=== PATIENT | male | born 1950 | race Caucasian/White ===

== ENCOUNTER 2021-08-13 02:52 | Observation (INO) | payer MEDICARE ==
--- NOTE | 2021-08-13 03:26 | ED ---
Chest Pain HPI - General Chief Complaint: Chest Pain Stated Complaint: Chest Pain Time Seen by Provider: 08/13/21 03:11 Source: patient Mode of arrival: wheelchair Limitations: physical limitation - History of Present Illness Initial Comments: This patient is a 70-year-old man woke this morning with sided chest pain. He is not able to characterize it well but states that it was moderate intensity, it seemed to resolve by the time he got here. He felt that it may have been related to eating some greasy ribs he had before going to bed. Patient states that also seem to radiate to his left shoulder. Onset/Timin -: hour(s) Onset: awoke with symptoms Pain Location: left chest Pain Radiation: LUE Severity: moderate Quality: other Consistency: now resolved Improves With: nothing Worsens With: nothing Treatments Prior to Arrival: none - Related Data Home Medications Medication Instructions Recorded Confirmed Acetaminophen with Codeine 1 tab PO Q6H PRN 08/13/21 08/13/21 [Tylenol w/Codeine #4 Tablet] Alendronate Sodium [Fosamax] 70 mg PO TH 08/13/21 08/13/21 Ascorbic Acid [Vitamin C] 500 mg PO DAILY 08/13/21 08/13/21 Cholecalciferol (Vitamin D3) 75 mcg PO DAILY 08/13/21 08/13/21 [Vitamin D3 (3000 Iu)] Magnesium 250 mg PO DAILY 08/13/21 08/13/21 Metoprolol Succinate (ER) [Toprol 50 mg PO HS 08/13/21 08/13/21 XL] Montelukast [Singulair] 10 mg PO HS 08/13/21 08/13/21 Pravastatin Sodium [Pravachol] 40 mg PO HS 08/13/21 08/13/21 Tamsulosin HCl [Flomax] 0.4 mg PO HS 08/13/21 08/13/21 Previous Rx's Medication Instructions Recorded Aspirin 81 mg PO DAILY tab 08/13/21 Omeprazole 20 mg PO BID #60 cap 08/13/21 Allergies Allergy/AdvReac Type Severity Reaction Status Date / Time chlorzoxazone [From Paraflex] Allergy Rash/Hives Verified 08/13/21 03:05 Penicillins Allergy Rash/Hives Verified 08/13/21 03:05 Review of Systems ROS Statement: Those systems with pertinent positive or pertinent negative responses have been documented in the HPI. ROS Other: All systems not noted in ROS Statement are negative. Constitutional: Denies: fever, chills Respiratory: Denies: cough, dyspnea Cardiovascular: Reports: chest pain. Denies: palpitations, orthopnea, edema, syncope Gastrointestinal: Reports: diarrhea (For past 10 days). Denies: abdominal pain, nausea, vomiting, constipation Genitourinary: Denies: dysuria, hematuria Musculoskeletal: Denies: back pain Skin: Denies: rash Neurological: Denies: headache, weakness, numbness EKG Findings - EKG Comments: EKG Findings:: Possible old lateral infarct. - EKG Results: EKG: interpreted by ERMD, sinus rhythm (With PVC, rate 74 bpm), normal axis, normal ST/T Past Medical History Past Medical History: Coronary Artery Disease (CAD), Myocardial Infarction ([place]) Past Surgical History: Appendectomy, Heart Catheterization With Stent, Orthopedic Surgery Additional Past Surgical History / Comment(s): lt arm, knee Past Psychological History: No Psychological Hx Reported Smoking Status: Never smoker Past Alcohol Use History: None Reported Past Drug Use History: None Reported General Exam Limitations: physical limitation General appearance: alert, in no apparent distress Head exam: Present: atraumatic, normocephalic Eye exam: Present: normal appearance. Absent: scleral icterus, conjunctival injection Neck exam: Present: normal inspection Respiratory exam: Present: normal lung sounds bilaterally. Absent: respiratory distress, wheezes, rales, rhonchi, stridor Cardiovascular Exam: Present: regular rate, normal rhythm, normal heart sounds. Absent: systolic murmur, diastolic murmur, rubs, gallop GI/Abdominal exam: Present: soft. Absent: distended, tenderness, guarding, rebound, rigid, mass Extremities exam: Present: normal inspection, normal capillary refill. Absent: pedal edema, calf tenderness Back exam: Present: normal inspection. Absent: CVA tenderness (R), CVA tenderness (L) Neurological exam: Present: alert Skin exam: Present: warm, dry, intact, normal color. Absent: rash Course Vital Signs 08/13/21 08/13/21 08/13/21 02:57 04:17 06:00 Temperature 98.1 F Pulse Rate 70 62 58 L Respiratory 20 18 18 Rate Blood Pressure 170/80 134/74 119/81 O2 Sat by Pulse 96 95 95 Oximetry Disposition Clinical Impression: Chest pain Disposition: ADMITTED IP TO THIS HOSP Condition: Good Is patient prescribed a controlled substance at d/c from ED?: No
[2021-08-13 03:49] LABS: Basophils # (A) 0.1 k/uL (0-0.2); Basophils % (A) 1 %; Eosinophils # (A) 0.3 k/uL (0-0.7); Eosinophils % (A) 3 %; HCT 44.5 % (39.0-53.0); HGB 15.1 gm/dL (13.0-17.5); Lymphocytes # (A) 3.9 k/uL (1.0-4.8); Lymphocytes % (A) 35 %; MCH 33.2 pg (25.0-35.0); MCV 97.9 fL (80.0-100.0); Mean Platelet Volume 6.8; Monocytes # (A) 0.6 k/uL (0-1.0); Monocytes % (A) 5 %; Neutrophils # (A) 6.1 k/uL (1.3-7.7); Neutrophils % (A) 55 %; Platelet Count 308 k/uL (150-450); RBC 4.55 m/uL (4.30-5.90); RDW 12.8 % (11.5-15.5); WBC 11.1 k/uL (3.8-10.6)
--- NOTE | 2021-08-13 03:55 | XR ---
EXAMINATION TYPE: XR chest 2V DATE OF EXAM: 08/13/2021 COMPARISON: NONE HISTORY: Chest pain TECHNIQUE: 2 views FINDINGS: Heart and mediastinum are normal. Lungs are clear. Diaphragm is normal. Bony thorax is inta ct. There are chest leads. IMPRESSION: Normal chest.
[2021-08-13 04:05] LABS: Albumin 4.1 g/dL (3.5-5.0); Total Bilirubin 0.5 mg/dL (0.2-1.3)
[2021-08-13 04:09] LABS: Potassium 4.3 mmol/L (3.5-5.1)
[2021-08-13 04:20] VITALS: RESP 18
[2021-08-13] MEDS ORDERED: NITROGLYCERIN SL TABS 0.4 MG TAB SUBLINGUAL PRN (06:07)
[2021-08-13] MEDS ORDERED: SODIUM CHLORIDE 0.9% 1,000 ML IV SCH (06:15)
[2021-08-13 08:12] VITALS: BP 162/81; PULSE 63; TEMP 98
[2021-08-13] MEDS ORDERED: ASPIRIN 81 MG PO SCH (09:00)
--- NOTE | 2021-08-13 10:05 | P.CRDCN ---
History of Present Illness History of present illness: HISTORY OF PRESENTING ILLNESS This is a pleasant 70-year-old male past medical history significant for coronary artery disease status post PCI to left circumflex in [place] and PCI LAD and left circumflex in 2018 at [facility], hypertension, dyslipidemia COPD, former cigarette smoker, diverticular disease of colon. He follows in the office with Dr. Benitez. We have been asked to see in consultation for chest pain. Patient is seen and examined at bedside, no acute distress. He states that yesterday at 2:30AM he woke up to the bathroom and had left-sided chest pain. He states he also had left-sided arm pain however he does have a rotator cuff tear in his left arm and is currently getting IV steroid injections. Pain was non-exertional. He describes the pain as a pressure/pain. He took 2 aspirins and felt his pain improve. He denies any associated palpitations, shortness of breath, nausea, diaphoresis, lightheadedness, dizziness, syncope. He denies lower extremity edema, symptoms of orthopnea or PND. He denies any specific aggravating factors. Patient states that over the last 10 days he has been having some GI symptoms feeling nausea, upper abdominal and epigastric pain and burning. He did state that yesterday he did have short ribs and afterwards had an episode of diarrhea and also acid reflux burning. He denies fevers or chills. Patient recently saw Dr. Benitez in the office in 05/19/2021 for a follow up after stress test. 04/16/2021 Patient recently underwent a exercise myocardial perfusion stress test, patient had above average exercise functional capacity and there was no evidence of stress-induced myocardial ischemia. Most recent echocardiogram 09/2013 revealed an EF of 55%. DIAGNOSTICS EKG reveals sinus rhythm, heart rate 74, PVC, no significant STT wave abnormalities. EKG in Dr Benitez office in March 2021 with similar findings, sinus bradycardia, heart rate 58. Last Cardiac Catheterization 04/20/2018- LAD 85% stenosis, Mid Lcx 90% stenosis, 1st diagonal, 2nd diagonal OM1 with no evidence of disease. Patient underwent successful PCI to the mid LAD and mid left circumflex. Telemetry tracings indicate sinus mechanism heart rate 5560s. Chest xray no acute cardiopulmonary process. Laboratory reviewed, WBC 11.1, hemoglobin 15.1, platelets 308, sodium 139, potassium 4.3, BUN 21, serum creatinine 1.0, magnesium 2.0, troponin negative 1, COVID-19 PCR negative. Patient's home cardiac medications include aspirin 81 mg daily, metoprolol succinate 50 mg nightly, when necessary nitroglycerin, pravastatin 20 mg daily REVIEW OF SYSTEMS At the time of my exam: CONSTITUTIONAL: Denies fever or chills. CARDIOVASCULAR: +chest pain Denies shortness of breath, orthopnea, PND or palpitations. RESPIRATORY: Denies cough. GASTROINTESTINAL: +epigastric abdominal pain, +diarrhea, +nausea MUSCULOSKELETAL: Denies myalgias. NEUROLOGIC: Denies numbness, tingling, headacbe or weakness. ENDOCRINE: Denies fatigue, weight change, polydipsia or polyurina. GENITOURINARY: Denies burning, hematuria or urgency with micturation. HEMATOLOGIC: Denies history of anemia or bleeding. PHYSICAL EXAMINATION Blood pressure 119/81, heart 58, afebrile, maintaining oxygen saturations on room air. CONSTITUTIONAL: No apparent distress. HEENT: Head is normocephalic. Pupils are equal, round. Sclerae anicteric. Mucous membranes of the mouth are moist. No JVD. No carotid bruit. CHEST EXAMINATION: Lungs are clear to auscultation. No chest wall tenderness is noted on palpation or with deep breathing. HEART EXAMINATION: Regular rate and rhythm. S1, S2 heard. No murmurs, gallops or rub. ABDOMEN: Soft, Tenderness with palpation to epigastric. Positive bowel sounds. EXTREMITIES: 2+ peripheral pulses, no lower extremity edema and no calf tenderness. SKIN: warm, dry NEUROLOGIC EXAMINATION: Patient is awake, alert and oriented x3. ASSESSMENT Chest pain, atypical, troponin negative x 1. EKG with no evidence of ischemia. Patient with recent negative stress test in March 2021. Coronary artery disease status post PCI to left circumflex in [place] and PCI LAD and mid left circumflex in 2018 at [facility] Hypertension Dyslipidemia COPD Former cigarette smoker History of diverticular disease of colon PLAN Trend troponin Obtain 2D echocardiogram and doppler study to assess cardiac structure and function. Continue patient's home aspirin, statin, and metoprolol succinate If echocardiogram with no acute findings and troponin negative x 3, no further cardiac workup at this time, and patient can be discharged from a cardiology perspective. 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 Nurse Practitioner note has been reviewed, I agree with a documented findings an d plan of care. Patient was seen and examined. Past Medical History Past Medical History: Coronary Artery Disease (CAD), Myocardial Infarction ([place]) Past Surgical History: Appendectomy, Heart Catheterization With Stent, Orthopedic Surgery Additional Past Surgical History / Comment(s): lt arm, knee Past Psychological History: No Psychological Hx Reported Smoking Status: Never smoker Past Alcohol Use History: None Reported Past Drug Use History: None Reported Medications and Allergies Home Medications Medication Instructions Recorded Confirmed Type Acetaminophen with Codeine 1 tab PO Q6H PRN 08/13/21 08/13/21 History [Tylenol w/Codeine #4 Tablet] Alendronate Sodium [Fosamax] 70 mg PO TH 08/13/21 08/13/21 History Ascorbic Acid [Vitamin C] 500 mg PO DAILY 08/13/21 08/13/21 History Cholecalciferol (Vitamin D3) 75 mcg PO DAILY 08/13/21 08/13/21 History [Vitamin D3 (3000 Iu)] Metoprolol Succinate (ER) [Toprol 50 mg PO HS 08/13/21 08/13/21 History Xl] Pravastatin Sodium [Pravachol] 40 mg PO HS 08/13/21 08/13/21 History RX: Magnesium 250 mg PO DAILY 08/13/21 08/13/21 History RX: Montelukast [Singulair] 10 mg PO HS 08/13/21 08/13/21 History RX: Omeprazole 20 mg PO DAILY 08/13/21 08/13/21 History Tamsulosin HCl [Flomax] 0.4 mg PO HS 08/13/21 08/13/21 History Allergies Allergy/AdvReac Type Severity Reaction Status Date / Time chlorzoxazone [From Paraflex] Allergy Rash/Hives Verified 08/13/21 03:05 Penicillins Allergy Rash/Hives Verified 08/13/21 03:05 Physical Exam Vitals: Vital Signs Temp Pulse Pulse Resp BP BP Pulse Ox 08/13/21 08:11 98.0 F 63 18 162/81 99 08/13/21 06:00 58 L 18 119/81 95 08/13/21 04:17 62 18 134/74 95 08/13/21 02:57 98.1 F 70 20 170/80 96 Intake and Output 08/12/21 08/13/21 08/13/21 22:59 06:59 14:59 Other: Weight 58.967 kg Results 08/13/21 03:27 08/13/21 03:27 Cardiac Enzymes 08/13/21 08/13/21 Range/Units 03:27 03:27 AST 32 (17-59) U/L Troponin I <0.012 (0.000-0.034) ng/mL CBC 08/13/21 Range/Units 03:27 WBC 11.1 H (3.8-10.6) k/uL RBC 4.55 (4.30-5.90) m/uL Hgb 15.1 (13.0-17.5) gm/dL Hct 44.5 (39.0-53.0) % Plt Count 308 (150-450) k/uL Comprehensive Metabolic Panel 08/13/21 Range/Units 03:27 Sodium 139 (137-145) mmol/L Potassium 4.3 (3.5-5.1) mmol/L Chloride 107 (98-107) mmol/L Carbon Dioxide 23 (22-30) mmol/L BUN 21 H (9-20) mg/dL Creatinine 1.08 (0.66-1.25) mg/dL Glucose 103 H (74-99) mg/dL Calcium 9.0 (8.4-10.2) mg/dL AST 32 (17-59) U/L ALT 20 (4-49) U/L Alkaline Phosphatase 75 (38-126) U/L Total Protein 7.0 (6.3-8.2) g/dL Albumin 4.1 (3.5-5.0) g/dL Current Medications Generic Name Dose Route Start Last Admin Trade Name Freq PRN Reason Stop Dose Admin Aspirin 81 mg 08/13/21 09:00 Aspirin 81 Mg PO DAILY CELESTINE Sodium Chloride 1,000 mls @ 20 mls/hr 08/13/21 06:15 08/13/21 07:52 Saline 0.9% IV 20 mls/hr .Q24H CELESTINE Administration Nitroglycerin 0.4 mg 08/13/21 06:07 Nitroglycerin Sl Tabs 0.4 Mg Tab SUBLINGUAL Q5M PRN Chest Pain Pravastatin Sodium 40 mg 08/13/21 21:00 Pravastatin Sodium 40 Mg Tab PO HS CELESTINE Intake and Output 08/12/21 08/13/21 08/13/21 22:59 06:59 14:59 Other: Weight 58.967 kg 08/13/21 03:27 08/13/21 03:27
[2021-08-13] MEDS ORDERED: Acetaminophen-Codeine 300-30mg TAB PO PRN (10:56)
[2021-08-13] MEDS ORDERED: PANTOPRAZOLE 40 MG TABLET PO SCH (11:00)
[2021-08-13] MEDS ORDERED: NON FORMULARY DRUG (Alendronate Sodium [Fosamax] 70 MG Tablet) PO SCH (11:00)
--- NOTE | 2021-08-13 11:43 | ECHOF ---
Referral Reason: MEASUREMENTS -------- HEIGHT: 162.6 cm WEIGHT: 59.0 kg BP: RVIDd: 2.3 cm (< 3.3) IVSd: 1.0 cm (0.6 - 1.1) LVIDd: 3.6 cm (3.9 - 5.3) LVPWd: 0.9 cm (0.6 - 1.1) IVSs: 1.4 cm LVIDs: 2.0 cm LVPWs: 1.5 cm LAESV Index (A-L): 14.68 ml/m Ao Diam: 3.1 cm (2.0 - 3.7) AV Cusp: 2.2 cm (1.5 - 2.6) LA Diam: 3.4 cm (2.7 - 3.8) MV EXCURSION: 15.488 mm (> 18.000) MV EF SLOPE: 74 mm/s (70 - 150) EPSS: 2.8 cm MV E Howard: 0.81 m/s MV DecT: 248 ms MV A Howard: 0.92 m/s MV E/A Ratio: 0.88 AR PHT: 1124 ms RAP: 5.00 mmHg RVSP: 10.33 mmHg FINDINGS -------- Sinus rhythm. This was a technically adequate study. The left ventricular size is normal. Left ventricular wall thickness is normal. Overall left vent ricular systolic function is normal with, an EF between 55 - 60 %. The diastolic filling pattern is normal for the age of the patient 11.35. The right ventricle is normal in size. Normal LA size by volume 22+/-6 ml/m2. The right atrial size is normal. The aortic valve was not well visualized. Trace to mild aortic regurgitation. The mitral valve is normal. Mild mitral regurgitation is present. The tricuspid valve appears structurally normal. Trace tricuspid regurgitation present. Right davina tricular systolic pressure is normal at < 35 mmHg. The pulmonic valve was not well visualized. There is no pulmonic regurgitation present. The aortic root size is normal. Normal inferior vena cava with normal inspiratory collapse consistent with estimated right atrial pre ssure of 5 mmHg. There is no pericardial effusion. CONCLUSIONS -------- 1. Left ventricular wall thickness is normal. 2. Overall left ventricular systolic function is normal with, an EF between 55 - 60 %. 3. Normal LA size by volume 22+/-6 ml/m2. 4. Trace to mild aortic regurgitation. 5. Mild mitral regurgitation is present. 6. Trace tricuspid regurgitation present. 7. There is no pericardial effusion. PROFESSIONAL SKATER: Rosa Dexter RDCS
[2021-08-13] MEDS ORDERED: CALCIUM CARBONATE LIQUID 500 MG/5 ML CUP PO ONE (12:00)
--- NOTE | 2021-08-13 16:53 | P.HPIM ---
History of Present Illness H&P Date: 08/13/21 Chief Complaint: Chest pain History of presenting complaint: This is a pleasant 70-year-old patient of Dr. Milena Mcnamara. Also follows with Dr. cardiology is Dr. Sin is sent today. Patient has known coronary artery disease with stent done about 3-4 years ago. Chronic stable medical conditions include hypertension, hyperlipidemia, GERD, ALLERGIES, BPH. Patient also has chronic pain from neck injury and spinal stenosis and also has got left shoulder rotator cuff which is down. Last night patient intubated rather late and had eaten drips. Went to bed straight after that. Around 2:30 the morning and went to get out of the bathroom he felt some chest discomfort. Is also pain in the neck and the arm. Gooddistinguish this from his orthopedic pain. No dizziness or lightheadedness no perspiration. Patient also for less than 5 minutes. Patient has not been feeling well for about a week. He is getting people to come and check on his home, monoxide levels. No other systemic symptoms. No fever no chills. Just felt a bit tired. Patient about 2 months ago did have a negative nuclear stress test. Review of systems: GEN.: Tired EYES: None HEENT: None NECK: None RESPIRATORY: None CARDIOVASCULAR: As above GASTROINTESTINAL: None GENITOURINARY: None MUSCULOSKELETAL: As above LYMPHATICS: None HEMATOLOGICAL: None PSYCHIATRY: None NEUROLOGICAL: None Past medical history to include: CAD with stent about 3-4 years ago, hypertension, hyperlipidemia, GERD, ALLERGIES, BPH, neck pain comes spinal stenosis, left shoulder rotator cuff injury Social history: Lives alone. 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 No smoking or alcohol Family history: Reviewed, noncontributory to presentation Physical examination: VITAL SIGNS: 98, 63, 18, 160/81, 99% room air GENERAL: BMI 22.3, reclining in bed, awake. EYES: Pupils equal. Conjunctiva normal. HEENT: External appearance of nose and ears normal, oral cavity grossly normal. NECK: JVD not raised; masses not palpable. HEART: First and second heart sounds are normal; no edema. LUNGS: Respiratory rate normal; clear to auscultation. ABDOMEN: Soft, nontender, liver spleen not palpable, no masses palpable. PSYCH: Alert and oriented x3; mood and affect normal. NEUROLOGICAL: Cranial nerves grossly intact; no facial asymmetry, power and sensation grossly intact. LYMPHATICS: No lymph nodes palpable in the axilla and neck INVESTIGATIONS, reviewed in the clinical context: WBC 11.1 hemoglobin 15.1 platelets 308 potassium 4.3 creatinine 1.08 Troponin I 2 negative Coronavirus [PCL]: Not detected EKG tracing personally reviewed by me-normal sinus rhythm, Q waves in lateral leads and inferior leads. PVC Chest x-ray film: Normal Assessment and plan: -Anterior chest wall pain, lasting for 5 minutes after patient having had a large meal in the evening. Could be GERD. Rule out cardiac cause. Negative troponins. Cardiology consulted -Coronary artery disease with stent for 3-4 years ago. Pravachol 40 mg, Toprol-XL 50 mg, aspirin 81 mg -Hyperlipidemia Pravachol 40 mg daily at bedtime -Essential hypertension Toprol-XL 50 mg daily at bedtime -GERD Increase omeprazole to 20 mg twice a day -BPH Flomax 0.4 mg daily at bedtime -Chronic neck pain from spinal stenosis -Chronic left shoulder rotator cuff injury For outpatient follow-up Home medications resumed. Telemetry. Cardiology was consulted. 2-D echocardiogram was ordered. Past Medical History Past Medical History: Coronary Artery Disease (CAD), Myocardial Infarction ([place]) Past Surgical History: Appendectomy, Heart Catheterization With Stent, Orthopedic Surgery Additional Past Surgical History / Comment(s): lt arm, knee Past Psychological History: No Psychological Hx Reported Smoking Status: Never smoker Past Alcohol Use History: None Reported Past Drug Use History: None Reported Medications and Allergies Home Medications Medication Instructions Recorded Confirmed Type Acetaminophen with Codeine 1 tab PO Q6H PRN 08/13/21 08/13/21 History [Tylenol w/Codeine #4 Tablet] Alendronate Sodium [Fosamax] 70 mg PO TH 08/13/21 08/13/21 History Ascorbic Acid [Vitamin C] 500 mg PO DAILY 08/13/21 08/13/21 History Aspirin 81 mg PO DAILY tab 08/13/21 Rx Cholecalciferol (Vitamin D3) 75 mcg PO DAILY 08/13/21 08/13/21 History [Vitamin D3 (3000 Iu)] Magnesium 250 mg PO DAILY 08/13/21 08/13/21 History Metoprolol Succinate (ER) [Toprol 50 mg PO HS 08/13/21 08/13/21 History XL] Montelukast [Singulair] 10 mg PO HS 08/13/21 08/13/21 History Omeprazole 20 mg PO BID #60 cap 08/13/21 Rx Pravastatin Sodium [Pravachol] 40 mg PO HS 08/13/21 08/13/21 History Tamsulosin HCl [Flomax] 0.4 mg PO HS 08/13/21 08/13/21 History Allergies Allergy/AdvReac Type Severity Reaction Status Date / Time chlorzoxazone [From Paraflex] Allergy Rash/Hives Verified 08/13/21 03:05 Penicillins Allergy Rash/Hives Verified 08/13/21 03:05 Physical Exam Vitals: Vital Signs Temp Pulse Pulse Resp BP BP Pulse Ox 08/13/21 08:11 98.0 F 63 18 162/81 99 08/13/21 06:00 58 L 18 119/81 95 08/13/21 04:17 62 18 134/74 95 08/13/21 02:57 98.1 F 70 20 170/80 96 Intake and Output 08/12/21 08/13/21 08/13/21 22:59 06:59 14:59 Other: Weight 58.967 kg Results CBC & Chem 7: 08/13/21 03:27 08/13/21 03:27 Labs: Abnormal Lab Results - Last 24 Hours (Table) 08/13/21 08/13/21 Range/Units 03:27 03:27 WBC 11.1 H (3.8-10.6) k/uL BUN 21 H (9-20) mg/dL Glucose 103 H (74-99) mg/dL
--- NOTE | 2021-08-13 16:55 | P.DS ---
Providers Date of admission: 08/13/21 06:08 Expected date of discharge: 08/13/21 Attending physician: Pierre Rios Consults: 08/13/21 06:08 Consult Physician Routine Consulting Provider: Billy Sue Consult Reason/Comments: chest pain Do you want consulting provider notified?: Yes Primary care physician: Milena Mcnamara [facility] Course: Chief Complaint: Chest pain History of presenting complaint: This is a pleasant 70-year-old patient of Dr. Milena Mcnamara. Also follows with . cardiology is Dr. Sin is sent today. Patient has known coronary artery disease with stent done about 3-4 years ago. Chronic stable medical conditions include hypertension, hyperlipidemia, GERD, ALLERGIES, BPH. Patient also has chronic pain from neck injury and spinal stenosis and also has got left shoulder rotator cuff which is down. Last night patient intubated rather late and had eaten drips. Went to bed straight after that. Around 2:30 the morning and went to get out of the bathroom he felt some chest discomfort. Is also pain in the neck and the arm. Gooddistinguish this from his orthopedic pain. No dizziness or lightheadedness no perspiration. Patient also for less than 5 minutes. Patient has not been feeling well for about a week. He is getting people to come and check on his home, monoxide levels. No other systemic symptoms. No fever no chills. Just felt a bit tired. Patient about 2 months ago did have a negative nuclear stress test. EKG was unremarkable. Troponin is negative. Patient seen by machine stitcher. Cleared for discharge. Patient to follow-up with his own machine stitcher. Dose of omeprazole increase. Could be GERD Consultation: Dr. Ty from cardiology Past medical history to include: CAD with stent about 3-4 years ago, hypertension, hyperlipidemia, GERD, ALLERGIES, BPH, neck pain comes spinal stenosis, left shoulder rotator cuff injury Social history: Lives alone. 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 No smoking or alcohol Family history: Reviewed, noncontributory to presentation Physical examination: VITAL SIGNS: 98, 63, 18, 160/81, 99% room air GENERAL: BMI 22.3, reclining in bed, awake. EYES: Pupils equal. Conjunctiva normal. HEENT: External appearance of nose and ears normal, oral cavity grossly normal. NECK: JVD not raised; masses not palpable. HEART: First and second heart sounds are normal; no edema. LUNGS: Respiratory rate normal; clear to auscultation. ABDOMEN: Soft, nontender, liver spleen not palpable, no masses palpable. PSYCH: Alert and oriented x3; mood and affect normal. NEUROLOGICAL: Cranial nerves grossly intact; no facial asymmetry, power and sensation grossly intact. LYMPHATICS: No lymph nodes palpable in the axilla and neck INVESTIGATIONS, reviewed in the clinical context: 2-D echocardiogram: EF 55-60%. No wall motion abnormality. WBC 11.1 hemoglobin 15.1 platelets 308 potassium 4.3 creatinine 1.08 Troponin I 2 negative Coronavirus [PCL]: Not detected EKG tracing personally reviewed by me-normal sinus rhythm, Q waves in lateral leads and inferior leads. PVC Chest x-ray film: Normal Assessment and plan: -Anterior chest wall pain, possibly from flareup of GERD -Coronary artery disease with stent for 3-4 years ago. Pravachol 40 mg, Toprol-XL 50 mg, aspirin 81 mg -Hyperlipidemia Pravachol 40 mg daily at bedtime -Essential hypertension Toprol-XL 50 mg daily at bedtime -GERD Increase omeprazole to 20 mg twice a day -BPH Flomax 0.4 mg daily at bedtime -Chronic neck pain from spinal stenosis -Chronic left shoulder rotator cuff injury For outpatient follow-up Disposition: Home Plan - Discharge Summary Discharge Rx Participant: No New Discharge Prescriptions: New Aspirin 81 mg PO DAILY tab Continue Pravastatin Sodium [Pravachol] 40 mg PO HS Acetaminophen with Codeine [Tylenol w/Codeine #4 Tablet] 1 tab PO Q6H PRN PRN Reason: Pain Alendronate Sodium [Fosamax] 70 mg PO TH Tamsulosin HCl [Flomax] 0.4 mg PO HS Metoprolol Succinate (ER) [Toprol XL] 50 mg PO HS Changed Omeprazole 20 mg PO BID #60 cap No Action Montelukast [Singulair] 10 mg PO HS Cholecalciferol (Vitamin D3) [Vitamin D3 (3000 Iu)] 75 mcg PO DAILY Ascorbic Acid [Vitamin C] 500 mg PO DAILY Magnesium 250 mg PO DAILY Discharge Medication List Acetaminophen with Codeine [Tylenol w/Codeine #4 Tablet] 1 tab PO Q6H PRN 08/13/21 [History] Alendronate Sodium [Fosamax] 70 mg PO TH 08/13/21 [History] Ascorbic Acid [Vitamin C] 500 mg PO DAILY 08/13/21 [History] Aspirin 81 mg PO DAILY tab 08/13/21 [Rx] Cholecalciferol (Vitamin D3) [Vitamin D3 (3000 Iu)] 75 mcg PO DAILY 08/13/21 [History] Magnesium 250 mg PO DAILY 08/13/21 [History] Metoprolol Succinate (ER) [Toprol XL] 50 mg PO HS 08/13/21 [History] Montelukast [Singulair] 10 mg PO HS 08/13/21 [History] Omeprazole 20 mg PO BID #60 cap 08/13/21 [Rx] Pravastatin Sodium [Pravachol] 40 mg PO HS 08/13/21 [History] Tamsulosin HCl [Flomax] 0.4 mg PO HS 08/13/21 [History] Follow up Appointment(s)/Referral(s): Milena Mcnamara MD [Primary Care Provider] - 1-2 days Cathy Benitez MD [REFERRING] - 10 Days Patient Instructions/Handouts: Chest Pain (DC) Discharge Disposition: HOME SELF-CARE
[2021-08-13] MEDS ORDERED: FAMOTIDINE 20 MG TAB PO SCH (21:00)
[2021-08-13] MEDS ORDERED: MONTELUKAST 10 MG TAB PO SCH (21:00)
[2021-08-13] MEDS ORDERED: METOPROLOL SUCCINATE (ER) 50 MG TAB.ER.24H PO SCH (21:00)
[2021-08-13] MEDS ORDERED: TAMSULOSIN 0.4 MG CAP.ER.24H PO SCH (21:00)
[2021-08-13] MEDS ORDERED: PRAVASTATIN SODIUM 40 MG TAB PO SCH (21:00)
[2021-08-14] MEDS ORDERED: ASPIRIN 325 MG TAB PO SCH (09:00)
[2021-08-14] MEDS ORDERED: MAGNESIUM OXIDE 400 MG TAB PO SCH (09:00)
[2021-08-14] MEDS ORDERED: ASCORBIC ACID 500 MG TAB PO SCH (09:00)
[2021-08-14] MEDS ORDERED: CHOLECALCIFEROL 25 MCG (1000 IU) TABLET PO SCH (09:00)
== END 2021-08-13 12:49 | disposition home or self-care (01) ==
LOC: EC 02:52 → 6NMEDSUR 06:08
PROVIDERS: ADMIT Hospitalist; ATTEND Hospitalist
DX: R07.89 Other chest pain (principal); I10 Essential (primary) hypertension; E78.5 Hyperlipidemia, unspecified; K21.9 Gastro-esophageal reflux disease without esophagitis; Z20.822 Contact with and (suspected) exposure to COVID-19; I25.10 Atherosclerotic heart disease of native coronary artery without angina pectoris; K57.30 Diverticulosis of large intestine without perforation or abscess without bleeding; M75.102 Unspecified rotator cuff tear or rupture of left shoulder, not specified as traumatic; M48.00 Spinal stenosis, site unspecified; N40.0 Benign prostatic hyperplasia without lower urinary tract symptoms; Z79.83 Long term (current) use of bisphosphonates; Z79.899 Other long term (current) drug therapy; Z79.82 Long term (current) use of aspirin; Z88.0 Allergy status to penicillin; Z88.8 Allergy status to other drugs, medicaments and biological substances; I25.2 Old myocardial infarction; Z90.49 Acquired absence of other specified parts of digestive tract; J44.9 Chronic obstructive pulmonary disease, unspecified; I49.3 Ventricular premature depolarization; Z87.891 Personal history of nicotine dependence; Z95.5 Presence of coronary angioplasty implant and graft
CPT/HCPCS: 99285; 36415; 93005; 93306; 80053; 83735; 84484; 85025; 87635; 71046; G0378

== ENCOUNTER 2022-08-03 16:20 | Emergency (ER) | payer MEDICARE ==
[2022-08-03 17:00] VITALS: TEMP 98.3
[2022-08-03 17:29] LABS: Basophils # (A) 0.1 k/uL (0-0.2); Basophils % (A) 1 %; Eosinophils # (A) 0.1 k/uL (0-0.7); Eosinophils % (A) 1 %; HCT 46.4 % (39.0-53.0); HGB 15.4 gm/dL (13.0-17.5); Lymphocytes # (A) 2.1 k/uL (1.0-4.8); Lymphocytes % (A) 20 %; MCH 30.7 pg (25.0-35.0); MCHC 33.3 g/dL (31.0-37.0); MCV 92.3 fL (80.0-100.0); Mean Platelet Volume 6.6; Monocytes # (A) 0.7 k/uL (0-1.0); Monocytes % (A) 7 %; Neutrophils # (A) 7.6 k/uL (1.3-7.7); Neutrophils % (A) 71 %; Platelet Count 265 k/uL (150-450); RBC 5.02 m/uL (4.30-5.90); RDW 14.8 % (11.5-15.5); WBC 10.7 k/uL (3.8-10.6)
[2022-08-03 17:40] LABS: ALT 25 U/L (4-49); AST 29 U/L (17-59); African American GFR (CKD) >90 (>60 ml/min/1.73 sqM); Albumin 4.3 g/dL (3.5-5.0); Alkaline Phosphatase 71 U/L (38-126); Anion Gap 12 mmol/L; Blood Urea Nitrogen 18 mg/dL (9-20); Calcium 9.1 mg/dL (8.4-10.2); Carbon Dioxide 23 mmol/L (22-30); Chloride 101 mmol/L (98-107); Glucose 156 mg/dL (74-99); Non-African American GFR(CKD) 85 (>60 ml/min/1.73 sqM); Potassium 3.7 mmol/L (3.5-5.1); Sodium 136 mmol/L (137-145); Total Bilirubin 0.3 mg/dL (0.2-1.3); Total Protein 6.8 g/dL (6.3-8.2)
--- NOTE | 2022-08-03 23:17 | ED ---
General Adult HPI - General Chief complaint: GI Bleed Stated complaint: weakness, blood in stool Time Seen by Provider: 08/03/22 22:49 Source: patient, RN notes reviewed Mode of arrival: ambulatory Limitations: no limitations - History of Present Illness Initial comments: This is a pleasant 71-year-old male who presents to the emergency department complaining of possible blood in his stool. Patient states he felt a little lightheaded and went to the bathroom. He then noted that there was a small amount of dark red blood after he had a bowel movement. States the vomiting was essentially normal. Patient does have a history of external hemorrhoids. Patient denying any rectal pain. He does state that he has had some intermittent gas pains since taking doxycycline. He has been on that medication since Tuesday for a sinus infection. Patient states he has nasal congestion with some pressure over his frontal and maxillary sinuses. He had no purulent nasal discharge. Mild sinus headache, no fever or chills, no changes in vision or hearing, no sore throat or difficulty with speech, no neck pain, no chest pain or shortness of breath, no nausea or vomiting, no changes in urinatio, no numbness or tingling, no extremity pain, no skin rashes or lesions. Past medical, surgical, social, and family history reviewed. - Related Data Home Medications Medication Instructions Recorded Confirmed Acetaminophen with Codeine 1 tab PO Q6H PRN 08/13/21 08/13/21 [Tylenol w/Codeine #4 Tablet] Alendronate Sodium [Fosamax] 70 mg PO TH 08/13/21 08/13/21 Ascorbic Acid [Vitamin C] 500 mg PO DAILY 08/13/21 08/13/21 Cholecalciferol (Vitamin D3) 75 mcg PO DAILY 08/13/21 08/13/21 [Vitamin D3 (3000 Iu)] Magnesium 250 mg PO DAILY 08/13/21 08/13/21 Metoprolol Succinate (ER) [Toprol 50 mg PO HS 08/13/21 08/13/21 XL] Montelukast [Singulair] 10 mg PO HS 08/13/21 08/13/21 Pravastatin Sodium [Pravachol] 40 mg PO HS 08/13/21 08/13/21 Tamsulosin HCl [Flomax] 0.4 mg PO HS 08/13/21 08/13/21 Previous Rx's Medication Instructions Recorded Aspirin 81 mg PO DAILY tab 08/13/21 Omeprazole 20 mg PO BID #60 cap 08/13/21 Sulfamethox-Tmp 800-160Mg [Bactrim 1 tab PO Q12HR #14 tab 08/04/22 DS 800-160 mg] metroNIDAZOLE [Flagyl] 500 mg PO BID #10 tab 08/04/22 Allergies Allergy/AdvReac Type Severity Reaction Status Date / Time chlorzoxazone [From Paraflex] Allergy Rash/Hives Verified 08/03/22 17:00 Penicillins Allergy Rash/Hives Verified 08/03/22 17:00 Review of Systems ROS Statement: Those systems with pertinent positive or pertinent negative responses have been documented in the HPI. ROS Other: All systems not noted in ROS Statement are negative. Past Medical History Past Medical History: Coronary Artery Disease (CAD), Myocardial Infarction ([place]) Last Myocardial Infarction Date:: 2003 History of Any Multi-Drug Resistant Organisms: None Reported Past Surgical History: Appendectomy, Heart Catheterization With Stent, Orthope dic Surgery Additional Past Surgical History / Comment(s): lt arm, knee Past Anesthesia/Blood Transfusion Reactions: No Reported Reaction Date of Last Stent Placement:: 2015 Past Psychological History: No Psychological Hx Reported Smoking Status: Never smoker Past Alcohol Use History: None Reported Past Drug Use History: None Reported General Exam - General Exam Comments Initial Comments: Patient in no acute distress. Vital signs stable, patient afebrile. Patient does not appear to be ill or toxic. Cranial nerves II through XII are grossly intact. Limitations: no limitations General appearance: alert, in no apparent distress Head exam: Present: atraumatic, normocephalic, normal inspection Eye exam: Present: normal appearance, PERRL, EOMI. Absent: scleral icterus, conjunctival injection, periorbital swelling ENT exam: Present: normal exam, normal oropharynx, mucous membranes moist, TM's normal bilaterally, normal external ear exam, other (No purulent nasal drainage. Turbinates are pink. Minimal maxillary sinus tenderness. Bilateral. Throat is clear. No tonsillar adenopathy or exudate. No purulent post nasal drainage.). Absent: mucous membranes dry Neck exam: Present: normal inspection. Absent: tenderness, meningismus, lymphadenopathy Respiratory exam: Present: normal lung sounds bilaterally. Absent: respiratory distress, wheezes, rales, rhonchi, stridor Cardiovascular Exam: Present: regular rate, normal rhythm, normal heart sounds. Absent: systolic murmur, diastolic murmur, rubs, gallop, clicks GI/Abdominal exam: Present: soft, normal bowel sounds. Absent: distended, tenderness, guarding, rebound, rigid Rectal exam: Present: normal inspection, heme (-) stool, hemorrhoids (External). Absent: black stool, bloody stool Extremities exam: Present: normal inspection, full ROM, normal capillary refill. Absent: tenderness, pedal edema, joint swelling, calf tenderness Back exam: Present: normal inspection Neurological exam: Present: alert, oriented X3, CN II-XII intact, normal gait. Absent: motor sensory deficit Psychiatric exam: Present: normal affect, normal mood. Absent: depressed, agitated, anxious, flat affect Skin exam: Present: warm, dry, intact, normal color. Absent: rash Course Vital Signs 08/03/22 08/04/22 16:57 00:02 Temperature 98.3 F Pulse Rate 95 90 Respiratory 20 16 Rate Blood Pressure 142/93 143/92 O2 Sat by Pulse 97 96 Oximetry - Reevaluation(s) Reevaluation #1: 08/04/22 00:33 Medical record is reviewed Symptoms are improved here in the emergency department Patient is informed of results and questions answered Patient in no distress EKG Findings - EKG Comments: EKG Findings:: EKG done at 2317 and read by the ED attending physician reveals with a rate of 63, normal intervals. Evidence of old inferior myocardial infarction with Q waves also noted in precordial leads consistent with old infarction. No evidence for acute ST or T-wave changes. When compared to the previous study from 2020 there are some changes in amplitude with regards to the QRS complexes. However, patient notably has had a CABG since that EKG. Medical Decision Making - Medical Decision Making patient presents with multiple complaints. However, sounds at the patient may be having some GI upset related to antibiotic use he is on doxycycline for sinus infection. Patient's initial laboratory investigations are essentially normal with a minimally elevated white blood cell count. However the patient is afebrile and otherwise stable. Patient did have some generalized abdominal tenderness. I did order a computed tomography scan to make sure we were not missing something that could be partially treated with the doxycycline. Otherwise the patient appears to be in no distress. We are pending an EKG. A troponin was ordered by the triage nurse Patient computed tomography scan shows evidence of mild sigmoid diverticulosis without abscess or perforation. We will stop the patient's doxycycline switch him over to Bactrim DS and metronidazole. 7 days of Bactrim DS in 5 days metronidazole. Discussed all findings with the patient. All questions answered. Treatment plan discussed. Patient was told to return to the ER for any signs or symptoms worsen. Told to return immediately if any other problems arise. All questions answered. Treatment plan discussed. Patient in agreement Every effort has been made to ensure accuracy of this dictation. However, due to the limitations of electronic medical records and dictation devices, errors in charting still occur. The case was discussed in detail with ED attending physician. Presentation, findings, treatment plan discussed in detail. 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 - Lab Data Result diagrams: 08/03/22 17:00 08/03/22 17:00 Lab Results 08/03/22 08/03/22 08/03/22 Range/Units 17:00 17:00 17:00 WBC 10.7 H (3.8-10.6) k/uL RBC 5.02 (4.30-5.90) m/uL Hgb 15.4 (13.0-17.5) gm/dL Hct 46.4 (39.0-53.0) % MCV 92.3 (80.0-100.0) fL MCH 30.7 (25.0-35.0) pg MCHC 33.3 (31.0-37.0) g/dL RDW 14.8 (11.5-15.5) % Plt Count 265 (150-450) k/uL MPV 6.6 Neutrophils % 71 % Lymphocytes % 20 % Monocytes % 7 % Eosinophils % 1 % Basophils % 1 % Neutrophils # 7.6 (1.3-7.7) k/uL Lymphocytes # 2.1 (1.0-4.8) k/uL Monocytes # 0.7 (0-1.0) k/uL Eosinophils # 0.1 (0-0.7) k/uL Basophils # 0.1 (0-0.2) k/uL Sodium 136 L (137-145) mmol/L Potassium 3.7 (3.5-5.1) mmol/L Chloride 101 (98-107) mmol/L Carbon Dioxide 23 (22-30) mmol/L Anion Gap 12 mmol/L BUN 18 (9-20) mg/dL Creatinine 0.91 (0.66-1.25) mg/dL Est GFR (CKD-EPI)AfAm >90 (>60 ml/min/1.73 sqM) Est GFR (CKD-EPI)NonAf 85 (>60 ml/min/1.73 sqM) Glucose 156 H (74-99) mg/dL Calcium 9.1 (8.4-10.2) mg/dL Total Bilirubin 0.3 (0.2-1.3) mg/dL AST 29 (17-59) U/L ALT 25 (4-49) U/L Alkaline Phosphatase 71 (38-126) U/L Troponin I <0.012 (0.000-0.034) ng/mL Total Protein 6.8 (6.3-8.2) g/dL Albumin 4.3 (3.5-5.0) g/dL Coronavirus (PCR) (Not Detectd) 08/03/22 Range/Units 17:00 WBC (3.8-10.6) k/uL RBC (4.30-5.90) m/uL Hgb (13.0-17.5) gm/dL Hct (39.0-53.0) % MCV (80.0-100.0) fL MCH (25.0-35.0) pg MCHC (31.0-37.0) g/dL RDW (11.5-15.5) % Plt Count (150-450) k/uL MPV Neutrophils % % Lymphocytes % % Monocytes % % Eosinophils % % Basophils % % Neutrophils # (1.3-7.7) k/uL Lymphocytes # (1.0-4.8) k/uL Monocytes # (0-1.0) k/uL Eosinophils # (0-0.7) k/uL Basophils # (0-0.2) k/uL Sodium (137-145) mmol/L Potassium (3.5-5.1) mmol/L Chloride (98-107) mmol/L Carbon Dioxide (22-30) mmol/L Anion Gap mmol/L BUN (9-20) mg/dL Creatinine (0.66-1.25) mg/dL Est GFR (CKD-EPI)AfAm (>60 ml/min/1.73 sqM) Est GFR (CKD-EPI)NonAf (>60 ml/min/1.73 sqM) Glucose (74-99) mg/dL Calcium (8.4-10.2) mg/dL Total Bilirubin (0.2-1.3) mg/dL AST (17-59) U/L ALT (4-49) U/L Alkaline Phosphatase (38-126) U/L Troponin I (0.000-0.034) ng/mL Total Protein (6.3-8.2) g/dL Albumin (3.5-5.0) g/dL Coronavirus (PCR) Not Detected (Not Detectd) Disposition Clinical Impression: Sigmoid diverticulitis, Allergic rhinitis, Sinus headache Disposition: HOME SELF-CARE Condition: Stable Instructions (If sedation given, give patient instructions): Diverticulitis (DC), Allergic Rhinitis (ED) Additional Instructions: Stopped the doxycycline. Trimethoprim/sulfamethoxazole and the metronidazole as directed. Finish the antibiotics. Follow-up with your regular physician as directed. Return to the ER immediately if any symptoms worsen, new symptoms arise, or any other problems develop. Prescriptions: Sulfamethox-Tmp 800-160Mg [Bactrim DS 800-160 mg] 1 tab PO Q12HR #14 tab metroNIDAZOLE [Flagyl] 500 mg PO BID #10 tab Is patient prescribed a controlled substance at d/c from ED?: No Referrals: Milena Mcnamara MD [Primary Care Provider] - 1-2 days Time of Disposition: 00:35
--- NOTE | 2022-08-03 23:52 | CT ---
EXAMINATION TYPE: CT abdomen pelvis wo con DATE OF EXAM: 08/03/2022 COMPARISON: None HISTORY: blood in stool and upper abdomnal pain hx of appendectomy CT DLP: 400.3 mGycm Automated exposure control for dose reduction was used. Images obtained from the diaphragm to the floor the pelvis with no contrast. The lung bases are clear. No pleural effusion. Heart size is normal. No pericardial effusion liver sp mayra and stomach pancreas appear intact. The bile duct are not dilated. Gallbladder is intact. There is no adrenal mass. Kidneys have normal size. No hydronephrosis. Ureters are not dilated. No re troperitoneal adenopathy. Bladder distends smoothly. No inguinal hernia. No free fluid in the pelvis. There are numerous sigmoid diverticula. There is a 2 cm area of fat stranding on the anterior wall o f the mid sigmoid colon that could be focal diverticulitis. The lumbar vertebrae have normal alignment. No compression fracture. Posterior elements are intact. H ip joints are intact. Sacroiliac joints are intact. IMPRESSION: There is evidence for small area of focal diverticulitis of the mid sigmoid colon. There is extensive sigmoid diverticulosis. There is no mesenteric edema. No ascites or free air. No bowel obstruction.
[2022-08-04 00:09] VITALS: BP 143/92; PULSE 90; RESP 16
[2022-08-04] MEDS ORDERED: SULFAMETHOX-TMP 800-160MG 1 EACH TAB PO STA (00:30)
[2022-08-04] MEDS ORDERED: metroNIDAZOLE 500 MG TAB PO STA (00:31)
== END 2022-08-04 01:20 | disposition home or self-care (01) ==
LOC: EC 16:20
DX: K57.32 Diverticulitis of large intestine without perforation or abscess without bleeding (principal); J30.9 Allergic rhinitis, unspecified; I25.10 Atherosclerotic heart disease of native coronary artery without angina pectoris; I25.2 Old myocardial infarction; Z20.822 Contact with and (suspected) exposure to COVID-19; Z88.2 Allergy status to sulfonamides; Z88.0 Allergy status to penicillin
CPT/HCPCS: 36415; 74176; 80053; 84484; 85025; 87635; 93005; 99284

== ENCOUNTER 2024-07-18 21:17 | Emergency (ER) | payer MEDICARE ==
[~2024-07-18 21:17] MED LIST: HYOSCYAMINE ELIXIR 250 MCG/10 ML BTL ONE; LIDOCAINE VISCOUS 300 MG/15 ML CUP ONE; MAG HYDROX/AL HYDROX/SIMETH 30 ML CUP ONE
[2024-07-18 21:34] VITALS: RESP 18
[2024-07-18 21:36] LABS: Glucose,Whole Blood 182 mg/dL (70-110)
[2024-07-19 07:03] VITALS: BP 149/78; PULSE 91; TEMP 98.3
[2024-07-19 10:05] LABS: Basophils % (A) 0 %; Eosinophils # (A) 0.1 k/uL (0-0.7); Eosinophils % (A) 1 %; HCT 42.4 % (39.0-53.0); HGB 14.5 gm/dL (13.0-17.5); Lymphocytes # (A) 2.6 k/uL (1.0-4.8); Lymphocytes % (A) 30 %; MCH 34.1 pg (25.0-35.0); MCHC 34.2 g/dL (31.0-37.0); MCV 99.7 fL (80.0-100.0); Monocytes # (A) 0.6 k/uL (0-1.0); Monocytes % (A) 6 %; Neutrophils # (A) 5.4 k/uL (1.3-7.7); Neutrophils % (A) 61 %; Platelet Count 249 k/uL (150-450); RBC 4.26 m/uL (4.30-5.90); WBC 8.8 k/uL (3.8-10.6)
[2024-07-19 10:54] LABS: ALT 38 U/L (4-49); AST 35 U/L (17-59); African American GFR (CKD) >90 (>60 ml/min/1.73 sqM); Albumin 4.2 g/dL (3.5-5.0); Alkaline Phosphatase 45 U/L (38-126); Amylase 32 U/L (30-110); Anion Gap 5 mmol/L; Blood Urea Nitrogen 12 mg/dL (9-20); Calcium 9.5 mg/dL (8.4-10.2); Carbon Dioxide 27 mmol/L (22-30); Chloride 107 mmol/L (98-107); Glucose 85 mg/dL (74-99); Lipase 152 U/L (23-300); Non-African American GFR(CKD) >90 (>60 ml/min/1.73 sqM); Potassium 3.8 mmol/L (3.5-5.1); Sodium 139 mmol/L (137-145); Total Bilirubin 0.5 mg/dL (0.2-1.3); Total Protein 6.5 g/dL (6.3-8.2)
--- NOTE | 2024-07-19 13:42 | XR ---
EXAM: XR Chest, 2 Views CLINICAL HISTORY: sob/weakness/abdominal pain TECHNIQUE: Frontal and lateral views of the chest. COMPARISON: No relevant prior studies available. FINDINGS: Lungs: Unremarkable. No consolidation. Pleural space: Unremarkable. No pneumothorax. Heart: Unremarkable. No cardiomegaly. Mediastinum: Unremarkable. Normal mediastinal contour. Bones/joints: Sternotomy wires. No acute fracture. Soft tissues: Appendage clip. IMPRESSION: No acute findings in the chest.
== END 2024-07-19 07:05 | disposition home or self-care (01) ==
LOC: EC 21:17
DX: R10.13 Epigastric pain (principal)
CPT/HCPCS: 36415; 71046; 80053; 82150; 83690; 84484; 85025; 93005; 99284